=== PATIENT | female | born 1930 | race Caucasian/White ===

== ENCOUNTER 2016-06-07 15:38 | Inpatient (IN) | payer MEDICARE ==
[2016-06-04 15:55] LABS: HEMOGLOBIN 12.8 g/dL (12.0-16.0); MEAN CORPUS HGB CONC 33.3 g/dL (32.0-36.0); MEAN CORPUSCULAR HEMOGLOB 30.2 pg (26.0-34.0); MEAN CORPUSCULAR VOLUME 90.6 fL (80-100); MEAN PLATELET VOLUME 10.3 fL (9.2-13.0); PLATELET COUNT 320 10/3/uL (150-400); RBC DISTRIBUTION WIDTH 13.6 % (12.0-16.0); RED CELL COUNT 4.24 10/6/uL (4.0-5.6)
[2016-06-04 16:14] LABS: BAND NEUTROPHILS 1 %; LYMPHOCYTES 46 %; MONOCYTES 6 %; PLATELET ESTIMATE ADQ (ADEQUATE); RBC MORPHOLOGY NORM (NORMAL); SEGMENTED NEUTROPHIL (0) 47 %; TOTAL NUCLEATED CELLS 100
[2016-06-04 16:15] LABS: HEMATOCRIT 38.4 % (36.0-48.0); MANUAL DIFF YES %
[2016-06-04 17:07] LABS: WHITE BLOOD CELLS 21.6 10/3/uL (4.5-10.5)
--- NOTE | ~2016-06-07 | CN ---
Consultation Report [facility] [address] [place]. [address] NAME: REGI HERRERA : 31 STATUS : ADM IN PAT#: [id number] AGE: 85 ADM/REG DATE : 06/07/16 MR#: [id number] REPORT SERV DATE: 06/12/16 DICTATED BY: STEPHANIE WETZEL DATE: 06/12/16 REPORT STATUS : Draft TRANSCRIBED BY: MODL DATE: 06/12/16 NEUROLOGICAL CONSULTATION-EVALUATION DATE OF CONSULTATION: 06/11/2016 Emergency neurological consultation. REASON FOR CONSULTATION: Abnormal CT finding, possible subarachnoid hemorrhage, change of mental status encephalopathy. HISTORY OF PRESENT ILLNESS: This is an 85-year-old female, with known history of dementia, who is admitted with generalized weakness, and poor p.o. intake, and possible dehydration. The patient has history of Alzheimer's dementia, diagnosed? three years ago. The patient has also recently diagnosed history of CLL with a slightly more than expected elevation of white count, from her baseline up to 16,000 prior to admission. The patient is admitted with possible urinary tract infection. The patient's repeat WBC count on admission was 28,000. PAST MEDICAL HISTORY: As mentioned above. 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 MEDICATIONS: Prior to admission included Namenda 10 mg p.o. daily, trazodone 50 mg at bedtime, citrulline 50 mg daily, calcium with vitamin D 600/400 one a day, vitamin D 50,000 units per month, senna 8.6 mg at bedtime, and MiraLAX. SOCIAL HISTORY: The patient is a former smoker. There is no history of alcohol use. She is a and has two adult grown children. FAMILY HISTORY: Apparently was significant for dementia. Neurological evaluation was requested because the patient appeared to be more somnolent and poorly arousable this morning. A CT scan of the head was obtained which showed small areas of right convexity subarachnoid hemorrhage with questionable areas of scattered hyperintense lesion suggestive of possible other areas of subarachnoid hemorrhage on the left frontal temporal region. The patient was not able to provide history. The patient's daughter was present later on in the room and provided additional history. The patient does not have any history of falling at home or in any other locations including the hospital. REVIEW OF SYSTEMS: Neurological review of system was obtained from patient's daughter. The patient does not have any history of strokes or seizures. Her diagnosis of dementia was made over three years ago. The patient does not have any significant behavior problems. She does have disturbed sleep pattern and takes naps during the day. Otherwise, the patient is pleasant and cooperative. The patient had been given trazodone for depression and for sleep. Consultation Report [place] [id number] [facility] [place]. [address] NAME: REGI HERRERA : 31 STATUS : ADM IN PAT#: [id number] AGE: 85 ADM/REG DATE : 06/07/16 MR#: [id number] REPORT SERV DATE: 06/12/16 DICTATED BY: STEPHANIE WETZEL DATE: 06/12/16 REPORT STATUS : Draft TRANSCRIBED BY: QUINTON DATE: 06/12/16 PHYSICAL EXAMINATION: VITAL SIGNS: Show blood pressure of 137/62, pulse was 88 and regular, respirations were 18, temperature was 97.4. HEAD AND NECK: Examination showed head to be normocephalic. There was no evidence of trauma. The protrusion on the left forehead suggestive of long-standing changes, secondary to possible osteoma, non-movable, moderately large size of approximately 2 cm in diameter. Auscultation of the head and neck showed no evidence of bruits. EYE EXAM: Sclerae were not icteric. Conjunctiva was pink. ENT EXAM: Showed tongue to be midline. No atrophy or fibrillations were noted. Airway appeared patent. NECK: Neck was supple. There is no Kernig or Brudzinski. Cervical range of motion did not appear impaired. CHEST: Chest was symmetrical. LUNGS: Clear to auscultation. HEART: Regular S1 and S2. I do not appreciate any murmurs or rubs. ABDOMEN: Soft and nontender. Bowel sounds were present, but decreased. EXTREMITIES: No clubbing or cyanosis. There is no peripheral edema. Peripheral pulses were normal. SKIN: Clear. No ecchymosis, petechiae, or hemorrhages were noted. Peripheral pulses were intact. NEUROLOGIC: The patient was somnolent, but arousable. She aroused and appeared to have appropriate response tracked with her eyes. Verbally responsive and remembered her name, however, was not oriented to time or place, her speech was fluent. There was no evidence of aphasia or dysarthria. The tone of voice was decreased. Distant memory testing appeared to confirm presence of dementia which appears to be quite advanced. Cranial nerve examination 2 through 12: Visual velázquez on confrontation appeared intact. Funduscopic exam showed no papilledema, hemorrhages, or exudates. Pupils were 2 to 3 mm small and reactive to light and accommodation. Extraocular movements were full. Eyes cross midline. No limitation of upward or downward gaze was noted. There was no evidence of facial asymmetry. The patient's smile was symmetrical. Lower cranial nerves were intact. Gag was present. Tongue was midline. No atrophy or fibrillations were noted. Shoulder shrugs, sternocleidomastoid and trapezius muscles were normal. No asymmetry was noted. Motor exam showed no evidence of significant deficit. The patient moves her upper and lower extremities to command, however, the patient appeared to have axial increased muscle tone. Rigidity which was not severe. Cerebellar exam, the patient did not perform. Gait could not be tested at this time. LABORATORY STUDIES: Sodium 136, potassium 4.1, chloride 98, BUN 18, creatinine 1.04, glomerular filtration rate 57, glucose 199, calcium 9.1. WBC count 14,000, hemoglobin 11.7, hematocrit 34.3, platelet count 402,000. The CT scan of the head as mentioned above showed areas of small serpiginous increase of signal possibly representing subarachnoid hemorrhage. The scan was reviewed and also discussed with the Dr. España, Radiology. MRI of the brain was ordered to better delineate the pathology and to rule out possible multiple strokes. MRA to rule out any area of Consultation Report [place] [id number] [facility] [place]. [address] NAME: REGI HERRERA : 31 STATUS : ADM IN [facility]#: [id number] AGE: 85 ADM/REG DATE : 06/07/16 MR#: [id number] REPORT SERV DATE: 06/12/16 DICTATED BY: STEPHANIE WETZEL DATE: 06/12/16 REPORT STATUS : Draft TRANSCRIBED BY: MODL DATE: 06/12/16 aneurysmal changes or apertures will be obtained. IMPRESSION: Increase of somnolence and thus change in mental status most likely secondary to changes noted on the CT. We will better delineate with additional diagnostic studies requested per the patient's daughter, history of dementia-Alzheimer's type, moderately advanced, the patient however had no behavioral changes and hopefully will be able to obtain a diagnostic studies without sedation. History of chronic lymphocytic leukemia, rule out hypercoagulable state secondary to above. Rule out cardiac arrhythmias, atrial fibrillation. Additional studies to rule out source of emboli will be recommended if needed. Echocardiogram and blood cultures if indicated. Underlying metabolic encephalopathy may contribute to the patient's mental status changes. The patient has history of chronic kidney disease, underlying urinary tract infection on an infectious process, may contribute to the patient's increased somnolence. The results of CT scan were discussed with the patient's daughter, who requested additional diagnostic studies to be done. The patient will be scheduled for an MRI of the brain, and MRA of the neck and brain. Recommend to avoid any sedating medications. Hold p.o. feeding to prevent risk of aspiration. Monitor the patient's increased risk of falling and injury. Evaluate cardiac risk of possible source of emboli. Thank you for Neurology to participate in this patient's care. JONG/QUINTON Stephanie Wetzel MD / [id number] CC: Marta Sanders M.D.
--- NOTE | ~2016-06-07 | DS ---
Discharge Summary [facility] [address] [place]. [address] NAME: REGI HERRERA : 31 STATUS : DIS IN PAT#: [id number] AGE: 85 ADM/REG DATE : 06/07/16 MR#: [id number] REPORT SERV DATE: 06/25/16 DICTATED BY: MARTA SANDERS DATE: 06/24/16 REPORT STATUS : Draft TRANSCRIBED BY: QUINTON DATE: 06/24/16 Data Collection from hospitalization DISCHARGE DIAGNOSES: 1. Fever. 2. Urinary tract infection. 3. Leukocytosis with chronic lymphocytic leukemia. 4. Acute ischemic stroke. 5. Small subarachnoid hemorrhage. 6. Alzheimer's disease. 7. History of urge incontinence. 8. Stage III chronic kidney disease. 9. Osteoporosis. 10.Chronic constipation. 11.Former smoker. 12.Anxiety. 13.Obsessive-compulsive disorder. 14.History of PPD - treated with INH. CONSULTATIONS: Stephanie Wetzel MD PROCEDURES PERFORMED: 1. CT scan of the abdomen and pelvis without contrast on 06/07/2016. 2. MRI of the brain without contrast on 06/11/2016. 3. CT scan of the brain without contrast on 06/11/2016. MEDICATIONS: Tylenol 1000 mg on Mondays, Wednesdays, and Fridays at 9:00 a.m.; Lipitor 40 mg at bedtime; Namenda 10 mg daily; Florastor one capsule twice a day; Senokot two tablets at bedtime; Zoloft 50 mg daily; MiraLAX powder one packet daily as needed; and Caltrate plus D 600 mg twice a day. CONDITION AT DISCHARGE: Stable. DISPOSITION: The patient was discharged to [facility] on a regular diet with activities as instructed. She would follow up with Dr. Mechelle Cornell as instructed. HOSPITAL COURSE: This is an 85-year-old female who at baseline is ambulatory and can have simple conversations. On the week prior to this admission, she developed influenza and was treated with Tamiflu. When she came back seven days later, she was weak and her family reported that she was not eating well. Lab work was obtained. She was found to have elevated BUN and a higher than normal creatinine. We encouraged to increase fluids. She has also had some constipation and there was some concern about urinary retention. She was given laxative and she started defecating and started urinating and seemed to be improving. CBC had shown white count that was elevated. She does have a history of chronic lymphocytic leukemia. Her white count usually runs between 12 and it had gotten as high as 16. It was felt that possibly with a recent flu this could account for her increased elevation of her white blood cell count. Urinalysis was normal. Chest x-ray was normal. On the of this admission, it was reported that she was not walking and had a fever of 99.5. Repeat white Discharge Summary [place] [address] [place]. [address] NAME: REGI HERRERA : 31 STATUS : DIS IN PAT#: [id number] AGE: 85 ADM/REG DATE : 06/07/16 MR#: [id number] REPORT SERV DATE: 06/25/16 DICTATED BY: MARTA SANDERS DATE: 06/24/16 REPORT STATUS : Draft TRANSCRIBED BY: MODL DATE: 06/24/16 blood cell count revealed that it had increased to 28. She had an increase in neutrophils, lymphocytes, and monocytes with some bandemia. There was no shift. She was admitted to the hospital at this time for further evaluation and treatment. Upon admission, her hepatic panel was normal except for an alkaline phosphatase of 146 and procalcitonin was 0.05. EKG revealed sinus rhythm at 80 beats per minute. She had a low- grade fever with worsening ability to ambulate and rising leukocytosis, the most pressing concern with sepsis even though her workup had been negative. There was concern that she now had a low-grade fever. There was also concern that this could just simply be hematological with her CLL getting worse. We did check blood cultures at the center. She had received a dose of Rocephin and Flagyl. She was started on Zosyn for at broader antibiotic coverage. IV fluids and probiotics were started. Namenda, trazodone, and citrulline would be continued. She does have advanced dementia with insomnia and anxiety. Calcium and vitamin D were held. The patient is a DNR comfort care status. CT scan of the abdomen and pelvis without contrast was performed. The following day, her white count had decreased to 19.8. Her CT scan had shown fecal impaction. She would receive enemas as needed. Her 06/07/2016 urine culture revealed greater than 100,000 Staph species. KUB was performed and it showed no acute intraabdominal processes. The fecal impaction had resolved. Lactulose was continued. She had no clear source of infection. The next day, she was very sleepy. Her lungs were clear. Her cultures had revealed MSSA and Enterococcus faecalis group D. Zosyn was stopped. Augmentin was continued. Her trazodone was stopped. The patient was seen by Dr. Stephanie Wetzel for an emergency neurologic consultation. The patient had an MRI of the brain without contrast and CT scan of the brain without contrast. CT scan of the head had shown areas of small serpiginous increase of signal possibly representing subarachnoid hemorrhage. The scan was reviewed and discussed with Dr. España of Radiology. MRI of the brain was ordered to better delineate the pathology and rule out possible multiple strokes. The patient had had increased somnolence. It was felt that the change in mental status was most likely secondary to changes noted on the CT. Oral feedings were being held to prevent the risk of aspiration. She recommended that we avoid any sedating medications. The MRI of the brain showed acute ischemic infarct, anterior left frontal lobe cortex, left basal ganglia, and a small acute ischemic infarct superior bilateral parietal lobe cortex, no associated significant mass-effect. At the larger infarct, there was a rim of hypointensity on susceptibility weighted images suggesting a small amount of blood products, although not visible on comparison cranial CT. On 06/12/2016, the patient could say a few words that morning. She did have a few bites of her breakfast. She did drink all of her Ensure. She denied any headache, chest pain, or shortness of breath. She was not cooperative for an MRA of the neck. Lipid panel was going to be checked. IV fluids were decreased. SCDs were in place for DVT prophylaxis. Zegerid was continued. We would hold on antiplatelets with her recent subarachnoid bleed. BMP was going to be checked. Discharge planning was performed. The patient is not a candidate for surgical intervention. An echocardiogram was performed. The next day, the patient seemed to be more alert. She was able to sit up in bed and look at the television. Supportive care continued. She was eating well. She was more interactive. She had no edema. Her lungs remained clear. White count was 18.1. It was felt that she would need a Hematology followup as an outpatient. She was being treated with Zosyn. Senna and MiraLAX were continued for her constipation. Discharge instructions were given. Due to her improved and Discharge Summary [place] [id number] [address] NAME: REGI HERRERA : 31 STATUS : DIS IN PAT#: [id number] AGE: 85 ADM/REG DATE : 06/07/16 MR#: [id number] REPORT SERV DATE: 06/25/16 DICTATED BY: MARTA SANDERS DATE: 06/24/16 REPORT STATUS : Draft TRANSCRIBED BY: QUINTON DATE: 06/24/16 stable condition, she was discharged to [facility] with the above-stated instructions. Information collected by: Nancy Onofre I submit the above information as my discharge summary. TG/QUINTON Marta Sanders M.D. / [id number] CC: Ad Camilo MD [facility]
--- NOTE | ~2016-06-07 | HP ---
History And Physical [place] [id number] [facility] [place]. [address] NAME: REGI CROWDER : 31 STATUS : ADM IN [facility]#: [id number] AGE: 85 ADM/REG DATE : 06/07/16 MR#: [id number] REPORT SERV DATE: 06/07/16 DICTATED BY: MARTA SANDERS DATE: 06/07/16 REPORT STATUS : Draft TRANSCRIBED BY: MODJuan DATE: 06/07/16 DATE OF ADMISSION: 06/07/2016 CHIEF COMPLAINT: Low-grade fever, decreased ability to ambulate. HISTORY OF PRESENT ILLNESS: Ms. Crowder is an 85-year-old woman who at baseline is ambulatory and can have simple conversations. Last week, she developed influenza and was treated with Tamiflu. When she came back seven days later, she was weak and her family reported she was not eating well. We obtained lab work at that point, and she had an elevated BUN and higher than normal creatinine, and we encouraged increased fluids. She also had some constipation and there was some concern about urinary retention. She was given laxatives, and she started defecating, started urinating, and seemed to be improving. We did check a CBC which showed white count that was elevated. The patient does have a history of CLL. Her white count usually runs between 12, it has gotten as high as 16, so it was thought that possibly with the recent flu that could account for her increased elevation of her WBC. Also we had checked urinalysis, which was normal. We checked a chest x-ray, which was normal, and the patient did have a fever, and then seemed to have an infection. However, today the staff in the [facility] at [facility] reported that she really was not walking and she had a fever of 99.5. We did a repeat white blood cell count and it had increased to 28, and at this point, she had an increase in neutrophils, lymphocytes, and monocytes with some bandemia and with her first CBC, there was no shift. PAST MEDICAL HISTORY: Significant for chronic lymphocytic leukemia, low-grade, diagnosed last year; history of an esophagitis with stricture, the patient had a hospitalization for this last year, also had a gastric ulcer. She has severe Alzheimer's dementia. She has a low be a BMI, history of anxiety and OCD, urge incontinence, chronic kidney disease 3. She has chronic nodules in her lungs that have not changed in size. She has a history of a positive PPD and was treated with INH. She also has osteoporosis and chronic constipation. MEDICATIONS: Include citrulline 50 mg daily, calcium with vitamin D 600/400 one tablet twice daily, Namenda 10 mg daily, Tylenol 500 mg two times daily, vitamin D3 of 50,000 international units q. month, trazodone 50 mg one-half tablet at bedtime, senna 8.6 mg one tablet at bedtime as needed, and MiraLAX 17 g daily as needed. SOCIAL HISTORY: She is with two adult children. She is a former smoker. No significant ETOH use. FAMILY HISTORY: Significant for dementia. PHYSICAL EXAMINATION: VITAL SIGNS: At our center, her temperature was 99, blood pressure was 118/70, pulse was 115, respiratory rate was 20, and O2 saturation was 97% on air. GENERAL: She is a frail elderly woman, in no apparent distress. HEENT: She has a bony deformity of her left frontal bone. Conjunctiva not injected. No scleral icterus. NECK: No adenopathy, has some prominent tissue under her chin. CARDIAC: She was tachycardic. History And Physical [address] [address] NAME: REGI CROWDER : 31 STATUS : ADM IN [facility]#: [id number] AGE: 85 ADM/REG DATE : 06/07/16 MR#: [id number] REPORT SERV DATE: 06/07/16 DICTATED BY: MARTA SANDERS DATE: 06/07/16 REPORT STATUS : Draft TRANSCRIBED BY: QUINTON DATE: 06/07/16 LUNGS: Clear to auscultation. ABDOMEN: Positive bowel sounds. Soft. She did exhibit some flinching when I pressed on her suprapubic area, but there was no guarding. GENITOURINARY: Her diaper was dry. EXTREMITIES: There was no edema, no joint swelling, no erythema. NEUROLOGIC: She was alert. There was positive speech. There was a word salad. She had about 4/5 strength in all 4 extremities. There was no tremor, no rigidity. SKIN: She has no abrasions, rash, or pressure ulcers. LABORATORY EVALUATION: White count was 28,200, with an increase in neutrophils, lymphocytes, and monocytes, with bandemia, and platelet count was 397, hemoglobin was 12.7. Her hepatic panel was normal except for an alkaline phosphatase of 146. Sodium was 133, potassium was 3.8, chloride was 96, pCO2 was 23, glucose was 94, BUN was 24, creatinine was 0.8. Hemoglobin was 14.3. Troponin was 0.02. Procalcitonin was 0.05. Lactate was 1.5. TSH was 1.160. EKG showed sinus rhythm at 80 beats per minute. IMPRESSION AND PLAN: 1. Low-grade fever with worsening ability to ambulate with a rising leukocytosis. Of course, my most pressing concern is sepsis, even though her workup has been negative, I am concerned that she now has a low-grade fever, but of course, I am also concerned that this could just be simply hematological with her CLL getting worse, but we did check blood cultures at the center. We did two sets. We gave her dose of Rocephin 1 g IM x1 and Flagyl 500 mg p.o. x1, and she will start Zosyn for broader antibiotic coverage. Once her IV has been established because she had some flinching upper belly, I will order a CT scan of her abdomen and pelvis with p.o. contrast only if her workup for infection is still an impressive and blood cultures are negative then we will get a Hematology consult. We will continue to follow her CBC daily. I will also start IV fluids and a probiotic. 2. The patient does have advanced dementia with insomnia and anxiety. We will continue her Namenda, trazodone, and citrulline. We will hold her calcium and vitamin D. 3. For constipation, we will make her senna 8.6 mg and we will do two tablets standing. The patient is DNR comfort care. The family has been updated on her condition and our concerns. LMB/MODL Marta Sanders M.D. / [id number] CC: Marta Sanders M.D.
[2016-06-07 11:36] LABS: HEMATOCRIT 37.5 % (36.0-48.0); HEMOGLOBIN 12.7 g/dL (12.0-16.0); MEAN CORPUS HGB CONC 33.9 g/dL (32.0-36.0); MEAN CORPUSCULAR HEMOGLOB 30.9 pg (26.0-34.0); MEAN CORPUSCULAR VOLUME 91.2 fL (80-100); MEAN PLATELET VOLUME 9.5 fL (9.2-13.0); PLATELET COUNT 397 10/3/uL (150-400); RBC DISTRIBUTION WIDTH 13.2 % (12.0-16.0); RED CELL COUNT 4.11 10/6/uL (4.0-5.6)
[2016-06-07 11:42] LABS: WHITE BLOOD CELLS 28.2 10/3/uL (4.5-10.5)
[2016-06-07 11:44] LABS: MANUAL DIFF YES %
[2016-06-07 11:49] LABS: ALBUMIN 3.5 G/DL (3.5-5.0); DIRECT BILIRUBIN 0.1 MG/DL (0.0-0.4); INDIRECT BILIRUBIN(NOT ORDER) 0.4 MG/DL (0.1-0.9); TOTAL BILIRUBIN 0.5 MG/DL (0-1.2); TOTAL PROTEIN 7.1 G/DL (6.0-8.5)
[2016-06-07 12:12] LABS: BAND NEUTROPHILS 12 %; LYMPHOCYTES 47 %; LYMPHOCYTES ABSOLUTE (CALC) 13.25 10/3/uL (0.67-4.30); MONOCYTES 6 %; MONOCYTES ABSOLUTE (CALC) 1.69 10/3/uL (0.21-1.20); NEUTROPHILS ABSOLUTE (CALC) 13.25 10/3/uL (2.02-8.40); PLATELET ESTIMATE ADQ (ADEQUATE); SEGMENTED NEUTROPHIL (0) 35 %; TOTAL NUCLEATED CELLS 100
[2016-06-07 12:13] LABS: RBC MORPHOLOGY NORM (NORMAL); TOXIC GRANULATION SLT
[2016-06-07 14:05] LABS: TROPONIN I 0.02 NG/ML (<0.05)
[2016-06-07 15:05] LABS: PROCALCITONIN 0.05 ng/mL (<0.5)
[2016-06-07 15:27] LABS: ULTRASENSITIVE TSH 1.16 MCIU/ML (0.358-3.740)
[~2016-06-07 15:38] MED LIST: ACET500CAP PO; AMOXIL500 MG PO; BIAXIN250 PO; BIAXIN5 PO; CALTRA600D PO; FLORASTOR250 MG PO; FOSAMAX70 MG PO; INH300 PO; MAXIMUM D3 PO; MELA3 PO; MIRALAXPKT PO; NAMENDA10 MG PO; PROTONIX PO; SENOKOTS PO; TRAZ50 PO; VITAMIN B-625 MG PO; ZOL50 PO
[2016-06-07] MEDS ORDERED: VITD (22:04)
[2016-06-07] MEDS ORDERED: KLOR-CON20 MEQ PO (22:08)
[2016-06-07] MEDS ORDERED: ALIGN4 MG PO (22:11)
[2016-06-07] MEDS ORDERED: FLAG500TAB (22:12)
[2016-06-07] MEDS ORDERED: ROCEPH IM (22:13)
[2016-06-07] MEDS ORDERED: KCL20UDL PO (22:37)
[2016-06-08 03:47] LABS: HEMATOCRIT 34.2 % (36.0-48.0); HEMOGLOBIN 11.6 g/dL (12.0-16.0); MEAN CORPUS HGB CONC 33.9 g/dL (32.0-36.0); MEAN CORPUSCULAR HEMOGLOB 30.4 pg (26.0-34.0); MEAN CORPUSCULAR VOLUME 89.8 fL (80-100); MEAN PLATELET VOLUME 9.3 fL (9.2-13.0); PLATELET COUNT 375 10/3/uL (150-400); RBC DISTRIBUTION WIDTH 13.4 % (12.0-16.0); RED CELL COUNT 3.81 10/6/uL (4.0-5.6); WHITE BLOOD CELLS 19.8 10/3/uL (4.5-10.5)
[2016-06-08 03:49] LABS: MANUAL DIFF YES %
[2016-06-08 05:48] LABS: BAND NEUTROPHILS 1 %; EOSINOPHILS 1 %; LYMPHOCYTES 48 %; MONOCYTES 6 %; MONOCYTES ABSOLUTE (CALC) 1.19 10/3/uL (0.21-1.20); NEUTROPHILS ABSOLUTE (CALC) 8.91 10/3/uL (2.02-8.40); PLATELET ESTIMATE ADQ (ADEQUATE); SEGMENTED NEUTROPHIL (0) 44 %; TOTAL NUCLEATED CELLS 100
[2016-06-08 05:49] LABS: HELMET CELLS OCC (0-2/OIF); SMUDGE CELLS FEW; TEARDROP SHAPED RBCS OCC (0-2/OIF)
[2016-06-08 06:39] LABS: CREATININE 0.85 MG/DL (0.55-1.02)
[2016-06-08 17:49] LABS: ASCORBIC ACID (UR NOT ORDER) NEG (NEG); BILIRUBIN, URINE NEGATIVE (NEG); KETONE, URINE NEGATIVE (NEG); LEUKOCYTE ESTERASE(NOT OR LARGE (NEG); WBC (NOT ORDERED) (RFLEX) 94 (0-5)
[2016-06-09] MEDS ORDERED: ZOL50 PO (10:09)
[2016-06-09] MEDS ORDERED: ALIGN4 MG PO (10:09)
[2016-06-09] MEDS ORDERED: CALTRA600D PO (10:09)
[2016-06-09] MEDS ORDERED: NAMENDA10 MG PO (10:09)
[2016-06-09] MEDS ORDERED: TRAZ50 PO (10:10)
[2016-06-09] MEDS ORDERED: MAXIMUM D3 PO (10:10)
[2016-06-09] MEDS ORDERED: MIRALAX POWDER1 PKT PO (10:10)
[2016-06-09] MEDS ORDERED: SENTAB PO (10:10)
[2016-06-09] MEDS ORDERED: ACET500CAP PO (10:11)
[2016-06-09 12:57] LABS: HEMATOCRIT 33.1 % (36.0-48.0); HEMOGLOBIN 11.1 g/dL (12.0-16.0); MEAN CORPUS HGB CONC 33.5 g/dL (32.0-36.0); MEAN CORPUSCULAR VOLUME 92.5 fL (80-100); MEAN PLATELET VOLUME 8.9 fL (9.2-13.0); PLATELET COUNT 365 10/3/uL (150-400); RBC DISTRIBUTION WIDTH 13.6 % (12.0-16.0); RED CELL COUNT 3.58 10/6/uL (4.0-5.6); WHITE BLOOD CELLS 17.5 10/3/uL (4.5-10.5)
[2016-06-09 12:58] LABS: MANUAL DIFF YES %
[2016-06-09 13:34] LABS: BAND NEUTROPHILS 2 %; IMMATURE GRANS ABSOLUTE (CALC) 0.18 10/3/uL (0.0-0.11); LYMPHOCYTES 48 %; METAMYELOCYTES 1 %; MONOCYTES 6 %; MONOCYTES ABSOLUTE (CALC) 1.05 10/3/uL (0.21-1.20); NEUTROPHILS ABSOLUTE (CALC) 7.88 10/3/uL (2.02-8.40); PLATELET ESTIMATE ADQ (ADEQUATE); SEGMENTED NEUTROPHIL (0) 43 %; TOTAL NUCLEATED CELLS 100
[2016-06-09 13:35] LABS: RBC MORPHOLOGY NORM (NORMAL); SMUDGE CELLS OCC
[2016-06-09 17:27] LABS: CALCIUM, SERUM 8.4 MG/DL (8.5-10.4); CHLORIDE, SERUM 105 MMOL/L (96-112); CO2 (CARBON DIOXIDE) 25 MMOL/L (24-34); CREATININE 0.77 MG/DL (0.55-1.02); GFR AFRICAN AMERICAN 82 ML/MIN (>=60); GFR NON AFRICAN AMERICAN 71 ML/MIN (>=60); POTASSIUM, SERUM 4.7 MMOL/L (3.5-5.3)
[2016-06-09 17:28] LABS: BUN (BLOOD UREA NITROGEN) 19 MG/DL (6-23); GLUCOSE, SERUM 68 MG/DL (60-99); SODIUM, SERUM 139 MMOL/L (135-148)
[2016-06-10 06:42] LABS: BUN (BLOOD UREA NITROGEN) 18 MG/DL (6-23); CALCIUM, SERUM 8.7 MG/DL (8.5-10.4); CHLORIDE, SERUM 100 MMOL/L (96-112); CO2 (CARBON DIOXIDE) 26 MMOL/L (24-34); CREATININE 0.91 MG/DL (0.55-1.02); GFR AFRICAN AMERICAN 67 ML/MIN (>=60); GFR NON AFRICAN AMERICAN 58 ML/MIN (>=60); POTASSIUM, SERUM 4.1 MMOL/L (3.5-5.3); SODIUM, SERUM 137 MMOL/L (135-148)
[2016-06-10 06:43] LABS: GLUCOSE, SERUM 104 MG/DL (60-99)
[2016-06-10 06:47] LABS: HEMOGLOBIN 11.6 g/dL (12.0-16.0); MEAN CORPUS HGB CONC 33.1 g/dL (32.0-36.0); MEAN CORPUSCULAR HEMOGLOB 30.9 pg (26.0-34.0); MEAN CORPUSCULAR VOLUME 93.1 fL (80-100); MEAN PLATELET VOLUME 8.9 fL (9.2-13.0); PLATELET COUNT 415 10/3/uL (150-400); RBC DISTRIBUTION WIDTH 13.8 % (12.0-16.0); RED CELL COUNT 3.76 10/6/uL (4.0-5.6); WHITE BLOOD CELLS 16.5 10/3/uL (4.5-10.5)
[2016-06-10 06:50] LABS: MANUAL DIFF YES %
[2016-06-10 07:02] LABS: BAND NEUTROPHILS 3 %; BASOPHILS 1 %; BASOPHILS ABSOLUTE (CALC) 0.17 10/3/uL (0.0-0.16); EOSINOPHILS 1 %; EOSINOPHILS ABSOLUTE (CALC) 0.17 10/3/uL (0.0-0.53); IMMATURE GRANS ABSOLUTE (CALC) 0.17 10/3/uL (0.0-0.11); LYMPHOCYTES 58 %; LYMPHOCYTES ABSOLUTE (CALC) 9.57 10/3/uL (0.67-4.30); METAMYELOCYTES 1 %; MONOCYTES 4 %; MONOCYTES ABSOLUTE (CALC) 0.66 10/3/uL (0.21-1.20); NEUTROPHILS ABSOLUTE (CALC) 5.78 10/3/uL (2.02-8.40); PLATELET ESTIMATE ADQ (ADEQUATE); SEGMENTED NEUTROPHIL (0) 32 %; SMUDGE CELLS FEW; TOTAL NUCLEATED CELLS 100; TOXIC GRANULATION 1+
[2016-06-10 07:03] LABS: RBC MORPHOLOGY NORM (NORMAL)
[2016-06-11 04:36] LABS: HEMATOCRIT 34.3 % (36.0-48.0); HEMOGLOBIN 11.7 g/dL (12.0-16.0); MEAN CORPUS HGB CONC 34.1 g/dL (32.0-36.0); MEAN CORPUSCULAR HEMOGLOB 31.5 pg (26.0-34.0); MEAN CORPUSCULAR VOLUME 92.5 fL (80-100); MEAN PLATELET VOLUME 8.9 fL (9.2-13.0); PLATELET COUNT 402 10/3/uL (150-400); RBC DISTRIBUTION WIDTH 13.6 % (12.0-16.0); RED CELL COUNT 3.71 10/6/uL (4.0-5.6)
[2016-06-11 04:39] LABS: MANUAL DIFF YES %
[2016-06-11 05:07] LABS: BAND NEUTROPHILS 3 %; EOSINOPHILS 1 %; EOSINOPHILS ABSOLUTE (CALC) 0.14 10/3/uL (0.0-0.53); LYMPHOCYTES 56 %; LYMPHOCYTES ABSOLUTE (CALC) 7.84 10/3/uL (0.67-4.30); MONOCYTES 6 %; MONOCYTES ABSOLUTE (CALC) 0.84 10/3/uL (0.21-1.20); NEUTROPHILS ABSOLUTE (CALC) 5.18 10/3/uL (2.02-8.40); SEGMENTED NEUTROPHIL (0) 34 %; TOTAL NUCLEATED CELLS 100
[2016-06-11 05:08] LABS: PLATELET ESTIMATE SLT INC (ADEQUATE); RBC MORPHOLOGY NORM (NORMAL)
[2016-06-11 13:17] LABS: BUN (BLOOD UREA NITROGEN) 18 MG/DL (6-23); CALCIUM, SERUM 9.1 MG/DL (8.5-10.4); CHLORIDE, SERUM 98 MMOL/L (96-112); CO2 (CARBON DIOXIDE) 31 MMOL/L (24-34); CREATININE 1.04 MG/DL (0.55-1.02); GFR AFRICAN AMERICAN 57 ML/MIN (>=60); GFR NON AFRICAN AMERICAN 49 ML/MIN (>=60); GLUCOSE, SERUM 199 MG/DL (60-99); POTASSIUM, SERUM 4.1 MMOL/L (3.5-5.3); SODIUM, SERUM 136 MMOL/L (135-148)
[2016-06-12 04:56] LABS: HEMATOCRIT 37.2 % (36.0-48.0); HEMOGLOBIN 12.4 g/dL (12.0-16.0); MEAN CORPUS HGB CONC 33.3 g/dL (32.0-36.0); MEAN CORPUSCULAR HEMOGLOB 31.2 pg (26.0-34.0); MEAN CORPUSCULAR VOLUME 93.5 fL (80-100); MEAN PLATELET VOLUME 8.7 fL (9.2-13.0); PLATELET COUNT 418 10/3/uL (150-400); RBC DISTRIBUTION WIDTH 13.7 % (12.0-16.0); RED CELL COUNT 3.98 10/6/uL (4.0-5.6)
[2016-06-12 04:57] LABS: MANUAL DIFF YES %
[2016-06-12 05:11] LABS: BUN (BLOOD UREA NITROGEN) 18 MG/DL (6-23); CALCIUM, SERUM 9.2 MG/DL (8.5-10.4); CHLORIDE, SERUM 99 MMOL/L (96-112); CO2 (CARBON DIOXIDE) 30 MMOL/L (24-34); CREATININE 0.84 MG/DL (0.55-1.02); GFR AFRICAN AMERICAN 74 ML/MIN (>=60); GFR NON AFRICAN AMERICAN 64 ML/MIN (>=60); POTASSIUM, SERUM 4.3 MMOL/L (3.5-5.3); SODIUM, SERUM 138 MMOL/L (135-148)
[2016-06-12 05:19] LABS: GLUCOSE, SERUM 103 MG/DL (60-99)
[2016-06-12 05:52] LABS: BAND NEUTROPHILS 1 %; LYMPHOCYTES 51 %; LYMPHOCYTES ABSOLUTE (CALC) 7.65 10/3/uL (0.67-4.30); MONOCYTES 6 %; NEUTROPHILS ABSOLUTE (CALC) 6.45 10/3/uL (2.02-8.40); PLATELET ESTIMATE SLT INC (ADEQUATE); RBC MORPHOLOGY NORM (NORMAL); SEGMENTED NEUTROPHIL (0) 42 %; TOTAL NUCLEATED CELLS 100
[2016-06-12 11:07] LABS: CHOLESTEROL 203 MG/DL (< 200); HDL CHOLESTEROL 41 MG/DL (> 49); LDL CHOLESTEROL 139 MG/DL (< 130); NON-HDL CHOLESTEROL 162 MG/DL (< 160); TRIGLYCERIDE 116 MG/DL (< 150)
[2016-06-13 13:23] LABS: HEMATOCRIT 35.6 % (36.0-48.0); HEMOGLOBIN 11.5 g/dL (12.0-16.0); MANUAL DIFF YES %; MEAN CORPUS HGB CONC 32.3 g/dL (32.0-36.0); MEAN CORPUSCULAR HEMOGLOB 30.3 pg (26.0-34.0); MEAN CORPUSCULAR VOLUME 93.7 fL (80-100); MEAN PLATELET VOLUME 8.7 fL (9.2-13.0); PLATELET COUNT 431 10/3/uL (150-400); RBC DISTRIBUTION WIDTH 13.9 % (12.0-16.0); WHITE BLOOD CELLS 18.1 10/3/uL (4.5-10.5)
[2016-06-13 13:25] LABS: BUN (BLOOD UREA NITROGEN) 21 MG/DL (6-23); CALCIUM, SERUM 8.9 MG/DL (8.5-10.4); CHLORIDE, SERUM 101 MMOL/L (96-112); CO2 (CARBON DIOXIDE) 28 MMOL/L (24-34); CREATININE 0.92 MG/DL (0.55-1.02); GFR AFRICAN AMERICAN 66 ML/MIN (>=60); GFR NON AFRICAN AMERICAN 57 ML/MIN (>=60); GLUCOSE, SERUM 109 MG/DL (60-99); POTASSIUM, SERUM 4.5 MMOL/L (3.5-5.3); SODIUM, SERUM 139 MMOL/L (135-148)
[2016-06-13 13:43] LABS: BAND NEUTROPHILS 1 %; EOSINOPHILS 1 %; EOSINOPHILS ABSOLUTE (CALC) 0.18 10/3/uL (0.0-0.53); IMMATURE GRANS ABSOLUTE (CALC) 0.18 10/3/uL (0.0-0.11); LYMPHOCYTES 58 %; METAMYELOCYTES 1 %; MONOCYTES 3 %; MONOCYTES ABSOLUTE (CALC) 0.54 10/3/uL (0.21-1.20); SEGMENTED NEUTROPHIL (0) 36 %; TOTAL NUCLEATED CELLS 100
[2016-06-13 13:44] LABS: PLATELET ESTIMATE SLT INC (ADEQUATE); RBC MORPHOLOGY NORM (NORMAL); SMUDGE CELLS OCC
== END 2016-06-14 21:02 | DRG 64 ==
LOC: CDU2 15:38 → 4SO 06-08 15:45
PROVIDERS: Internal Medicine Geriatric Medicine
DX: I60.8 Other nontraumatic subarachnoid hemorrhage (principal); G93.41 Metabolic encephalopathy; I63.8 Other cerebral infarction; C91.10 Chronic lymphocytic leukemia of B-cell type not having achieved remission; E86.0 Dehydration; B95.8 Unspecified staphylococcus as the cause of diseases classified elsewhere; N39.0 Urinary tract infection, site not specified; Z51.5 Encounter for palliative care; G30.9 Alzheimer's disease, unspecified; F02.80 Dementia in other diseases classified elsewhere, unspecified severity, without behavioral disturbance, psychotic disturbance, mood disturbance, and anxiety; Z87.11 Personal history of peptic ulcer disease; M81.0 Age-related osteoporosis without current pathological fracture; N39.41 Urge incontinence; Z66 Do not resuscitate; N18.3 Chronic kidney disease, stage 3 (moderate); Z87.891 Personal history of nicotine dependence; G47.00 Insomnia, unspecified; F41.9 Anxiety disorder, unspecified; K56.41 Fecal impaction; R33.8 Other retention of urine
CPT/HCPCS: 70450; 70551; 71010; 74000; 74176; 80048; 80061; 80076; 81001; 82565; 83036; 83605; 84145; 84443; 84484; 85025; 87040; 87077; 87086; 87186; 97116-GP; 97161-GP; A9270-GY; C8929; J2543; Q9957

== ENCOUNTER 2016-07-21 13:15 | Emergency (ER) | payer MEDICARE ==
[~2016-07-21 13:15] MED LIST changes: +ALIGN4 MG PO; +FLAG500TAB; +KCL20UDL PO; +KLOR-CON20 MEQ PO; +MIRALAX POWDER1 PKT PO; +ROCEPH IM; +SENTAB PO; +VITD
[2016-07-21 13:50] LABS: ALLENS TEST Pos; BE (BASE EXCESS) -0.1 MEQ/L (0 +/- 2.5); CARBOXYHEMOGLOBIN 1.2 % (0-3); DEVICE NRB 15L; HCO3 (ACTUAL BICARBONATE) 29.6 MEQ/L (23-27); HEMOBLOGIN CONTENT 15.3 G/DL (12-16); INSTRUMENT SERIAL # 8087; METHEMOGLOBIN 0.5 % (0-3); O2 CONTENT 22.2 VOL% (18-24); OPERATOR ID 14472; PCO2 (CO2 TENSION) 72 MMHG (35-45); PO2 (O2 TENSION) 399 MMHG (79-93); SAMPLE Arterial; pH 7.23 (7.37-7.43)
[2016-07-21 15:41] LABS: BASOPHILS 0.2 %; BASOPHILS ABSOLUTE 0.05 10/3/uL (0.0-0.16); EOSINOPHILS 0 %; EOSINOPHILS ABSOLUTE 0.01 10/3/uL (0.0-0.53); IMMATURE GRANULOCYTES 0.6 %; LYMPHOCYTES 41.2 %; LYMPHOCYTES ABSOLUTE 12.85 10/3/uL (0.67-4.30); MEAN CORPUS HGB CONC 31.7 g/dL (32.0-36.0); MEAN CORPUSCULAR HEMOGLOB 30.7 pg (26.0-34.0); MEAN PLATELET VOLUME 10.1 fL (9.2-13.0); MONOCYTES 5.3 %; MONOCYTES ABSOLUTE 1.65 10/3/uL (0.21-1.20); NEUTROPHILS 52.7 %; NEUTROPHILS ABSOLUTE 16.45 10/3/uL (2.02-8.40); PLATELET COUNT 357 10/3/uL (150-400); RBC DISTRIBUTION WIDTH 14.1 % (12.0-16.0)
[2016-07-21 15:42] LABS: ER CBC TAT 0 Hrs 09 Mins; HEMATOCRIT 50.4 % (36.0-48.0); MEAN CORPUSCULAR VOLUME 96.7 fL (80-100); RED CELL COUNT 5.21 10/6/uL (4.0-5.6); WHITE BLOOD CELLS 31.2 10/3/uL (4.5-10.5)
[2016-07-21 15:45] LABS: MANUAL DIFF NO %
[2016-07-21 15:48] LABS: INTERNATIONAL NORMAL RATI 1.2 UNITS (-); PARTIAL THROMBO TIME 26.4 SEC (22.5-37.2); PROTIME (NOT ORD) 14.6 SEC (12.0-14.5)
[2016-07-21 15:58] LABS: ALLENS TEST Pos; BE (BASE EXCESS) 0.6 MEQ/L (0 +/- 2.5); BIPAP 18/6 cm.H2O; CARBOXYHEMOGLOBIN 1.2 % (0-3); HCO3 (ACTUAL BICARBONATE) 36.8 MEQ/L (23-27); INSTRUMENT SERIAL # 8087; METHEMOGLOBIN 0.5 % (0-3); O2 CONTENT 22.6 VOL% (18-24); OPERATOR ID 32214; PCO2 (CO2 TENSION) 141 MMHG (35-45); PO2 (O2 TENSION) 269 MMHG (79-93); SAMPLE Arterial; pH 7.03 (7.37-7.43)
[2016-07-21 16:01] LABS: BAND NEUTROPHILS 7 %; ER DIFF TAT 0 Hrs 28 Mins; LYMPHOCYTES 42 %; MONOCYTES 6 %; MONOCYTES ABSOLUTE (CALC) 1.87 10/3/uL (0.21-1.20); NEUTROPHILS ABSOLUTE (CALC) 16.22 10/3/uL (2.02-8.40); SEGMENTED NEUTROPHIL (0) 45 %; TOTAL NUCLEATED CELLS 100
[2016-07-21 16:02] LABS: PLATELET ESTIMATE ADQ (ADEQUATE)
[2016-07-21 16:13] LABS: ASCORBIC ACID (UR NOT ORDER) NEG (NEG); BILIRUBIN, URINE NEGATIVE (NEG); ER URINALYSIS TAT 0 Hrs 18 Mins; KETONE, URINE TRACE MG/DL (NEG); LEUKOCYTE ESTERASE(NOT OR LARGE (NEG); NITRITE (URINE) NEG (NEG); WBC (NOT ORDERED) (RFLEX) 165 (0-5)
[2016-07-21 16:22] LABS: BUN (BLOOD UREA NITROGEN) 50 MG/DL (6-23); CHLORIDE, SERUM 110 MMOL/L (96-112); CO2 (CARBON DIOXIDE) 33 MMOL/L (24-34); CREATININE 1.23 MG/DL (0.55-1.02); GFR AFRICAN AMERICAN 46 ML/MIN (>=60); GFR NON AFRICAN AMERICAN 40 ML/MIN (>=60); GLUCOSE, SERUM 178 MG/DL (60-99); POTASSIUM, SERUM 4.6 MMOL/L (3.5-5.3); SODIUM, SERUM 149 MMOL/L (135-148)
[2016-07-21 16:24] LABS: TROPONIN I 0.13 NG/ML (<0.05)
[2016-07-21 16:25] LABS: CHEST PAIN PROFILE TAT 0 Hrs 51 Mins
[2016-07-21 18:22] LABS: PROCALCITONIN 0.05 ng/mL (<0.5)
== END 2016-07-21 18:03 | disposition expired ==
LOC: ER 13:15
PROVIDERS: Emergency Medicine
DX: A41.9 Sepsis, unspecified organism (principal); R65.20 Severe sepsis without septic shock; J96.90 Respiratory failure, unspecified, unspecified whether with hypoxia or hypercapnia; N39.0 Urinary tract infection, site not specified; N18.9 Chronic kidney disease, unspecified; F03.90 Unspecified dementia, unspecified severity, without behavioral disturbance, psychotic disturbance, mood disturbance, and anxiety; Z88.8 Allergy status to other drugs, medicaments and biological substances; Z79.899 Other long term (current) drug therapy
CPT/HCPCS: 36600; 71010; 80048; 81001; 82805; 83605; 83735; 84145; 84484; 85025; 85610; 85730; 87086; 94640; 99291; A9270-GY; J2543